=== PATIENT | male | born 1955 | race African-American/Black ===

== ENCOUNTER 2021-05-20 17:33 | Inpatient (IN) | payer OTHER ==
[~2021-05-20] VITALS: Ht 172.7 cm; Wt 92.5 kg
[2021-05-20] MEDS ORDERED: MORPHINE SULFATE INJ 4 MG/ML DISP.SYRIN ONE (18:20)
[2021-05-20] MEDS ORDERED: ONDANSETRON HCL/PF 4 MG/2 ML VIAL ONE (18:20)
[2021-05-20 18:25] LABS: BILIRUBIN,URINE Negative (NEGATIVE); COLOR,URINE YELLOW (YELLOW); LEUKOCYTE ESTERASE ,URINE Negative (NEGATIVE); NITRITE, URINE Negative (NEGATIVE); PROTEIN,URINE 30 mg/dl (NEGATIVE); UGLUCOSE Negative (NEGATIVE); UROBILINOGEN,URINE 0.2 EU/dL (0.2)
[2021-05-20 18:27] LABS: BACTERIA,URINE Rare /HPF (None Seen); RBC,URINE NONE SEEN /HPF (0-2); SQUAMOUS EPITHELIAL CELL,UR Few /HPF (None Seen); WBC,URINE NONE SEEN /HPF (0-3)
[2021-05-20] MEDS ORDERED: IV NS 0.9% 1,000 ML BAG IV ONE (18:30)
[2021-05-20] MEDS ORDERED: MORPHINE SULFATE INJ 2 MG/ML DISP.SYRIN IV ONE (18:30)
[2021-05-20] MEDS ORDERED: ONDANSETRON HCL/PF 4 MG/2 ML VIAL IVP ONE (18:30)
--- NOTE | 2021-05-20 18:30 | NUR ---
Patient came in to the er c/o LLQ pain x 2 days 06/12 ps. On room air, breathing evenly and unlabored. Conencted to the monitor and pulse ox. kept comfortable, will continue to monitor accordingly.
--- NOTE | 2021-05-20 18:31 | NUR ---
IV started and blood drawned and sent to lab.
--- NOTE | 2021-05-20 18:31 | NUR ---
urine collected and sent to lab.
[2021-05-20 18:33] LABS: BASOPHILS # (AUTO) 0.1 K/uL (0.0-0.2); BASOPHILS % (AUTO) 0.6 % (0.0-2.0); EOSINOPHILS % (AUTO) 4.4 % (0.0-6.0); HEMATOCRIT 43 % (39-51); HEMOGLOBIN 14.3 g/dL (13.5-17.5); LYMPHOCYTES # (AUTO) 1.8 K/uL (0.8-4.8); LYMPHOCYTES % (AUTO) 21.2 % (20.0-44.0); MEAN CORPUSCULAR HGB CONC 33 g/dl (31.0-36.0); MEAN CORPUSCULAR VOLUME 87 fL (80-96); MONOCYTES # (AUTO) 0.8 K/uL (0.1-1.30); NEUTROPHILS # (AUTO) 5.6 K/uL (1.8-8.9); NEUTROPHILS % (AUTO) 64.8 % (43.0-81.0); PLATELET COUNT (AUTO) 221 K/uL (150-450); RED BLOOD CELL COUNT(AUTO) 4.97 MIL/uL (4.5-6.0); WHITE BLOOD COUNT (AUTO) 8.6 K/uL (4.3-11.0)
[2021-05-20 18:55] LABS: ALBUMIN 3.6 g/dL (3.4-5.0); BILIRUBIN,DIRECT 0.2 mg/dL (0.0-0.2); BILIRUBIN,TOTAL 0.9 mg/dL (0.2-1.0); CALCIUM, SERUM 8.9 mg/dL (8.5-10.1); CREATININE 1.3 mg/dL (0.6-1.3); POTASSIUM 3.8 mmol/L (3.5-5.1); TOTAL PROTEIN, SERUM 8.5 g/dL (6.4-8.2)
[2021-05-20] MEDS ORDERED: IOHEXOL-300 100 ML VIAL IV ONE (19:11)
--- NOTE | 2021-05-20 19:18 | NUR ---
report given to lashonda hung for kimber.
--- NOTE | 2021-05-20 19:26 | NUR ---
PT RETURNED FROM CT
--- NOTE | 2021-05-20 20:37 | NUR ---
COVID SWAB DONE AND SENT TO LAB
[2021-05-20] MEDS ORDERED: ACETAMINOPHEN 325 MG TABLET PO PRN (21:00)
[2021-05-20] MEDS ORDERED: MORPHINE SULFATE INJ 2 MG/ML DISP.SYRIN IV PRN (21:00)
[2021-05-20] MEDS ORDERED: ONDANSETRON HCL/PF 4 MG/2 ML VIAL IVP PRN (21:00)
[2021-05-20] MEDS ORDERED: ENOXAPARIN SODIUM 80 MG/0.8 ML DISP.SYRIN SQ ONE (21:00)
[2021-05-20] MEDS ORDERED: hydrALAZINE HCL IV 20 MG VIAL IV PRN (21:00)
[2021-05-20] MEDS ORDERED: IV NS 0.9% 1,000 ML IV PRN (21:00)
[2021-05-20] MEDS ORDERED: ENOXAPARIN SODIUM 100 MG/ML DISP.SYRIN SQ ONE (21:09)
--- NOTE | 2021-05-20 21:57 | NUR ---
MS 113-1
--- NOTE | 2021-05-20 22:09 | NUR ---
ROOM 313-1
--- NOTE | 2021-05-20 22:14 | NUR ---
REPORT GIVEN TO CHARGE NURSE
--- NOTE | 2021-05-20 22:34 | NUR ---
STACIN TRANSFERRED TO [facility], IN NO ACUTE DISTRESS.
[2021-05-20 22:45] VITALS: BP 152/82
--- NOTE | 2021-05-20 23:15 | NUR ---
Patient arrived to [facility] at 2245 in stable condition. A&Ox4. VS: BP 152/82, Temp 99.5, HR 91, O2 99%on RA, RR 19. Patient states he is in abdominal pain, distention is evident -but denies nausea or vomiting. NPO except meds at this time. Also reports pain in L groin area which came back negative for DVT -no swelling to area noted. Patient heart rate and rhythm regular, breath sounds clear, bowel sounds hypoactive, patient has colostomy -surrounding skin in good condition. Skin intact otherwise. discoloration to R lower barba which patient reports has been there for years and there has been no issues. Patient is ambulatory -steady. Oriented patient to unit, protocols, bed controls, call light and remote. Bed locked and in lowest position. Reported 8/10 abdominal pain will give prn morphine shortly. No signs of distress at this time.
[2021-05-20] MEDS: POLYETHYLENE GLYCOL 3350 17 GM POWD.PACK PO SCH (23:16)
[2021-05-20] MEDS: DOCUSATE SODIUM LIQ 100 MG/10 ML UDC PO SCH (23:17)
--- NOTE | 2021-05-21 00:22 | NUR ---
[facility]
--- NOTE | 2021-05-21 05:47 | NUR ---
No output to colostomy overnight
--- NOTE | 2021-05-21 05:48 | NUR ---
patient still denies any nausea
[2021-05-21 06:17] LABS: BASOPHILS % (AUTO) 0.3 % (0.0-2.0); EOSINOPHILS % (AUTO) 3.8 % (0.0-6.0); HEMATOCRIT 37 % (39-51); HEMOGLOBIN 12.6 g/dL (13.5-17.5); LYMPHOCYTES # (AUTO) 1.4 K/uL (0.8-4.8); LYMPHOCYTES % (AUTO) 19.7 % (20.0-44.0); MEAN CORPUSCULAR HGB CONC 34 g/dl (31.0-36.0); MEAN CORPUSCULAR VOLUME 87 fL (80-96); MONOCYTES # (AUTO) 0.9 K/uL (0.1-1.30); MONOCYTES % (AUTO) 11.8 % (2.0-12.0); NEUTROPHILS # (AUTO) 4.7 K/uL (1.8-8.9); NEUTROPHILS % (AUTO) 64.4 % (43.0-81.0); PLATELET COUNT (AUTO) 197 K/uL (150-450); WHITE BLOOD COUNT (AUTO) 7.3 K/uL (4.3-11.0)
--- NOTE | 2021-05-21 06:23 | NUR ---
MS RN CLOSING NOTES Patient has been A&Ox4. VSS. NPO except meds. No output to colostomy bag. Denies nausea. Pain relieved with PRN Morphine. Able to make needs known. currently on NS at 75cc/hr. IV patent -no signs of infiltration or extravasation.
[2021-05-21 06:55] LABS: ALBUMIN 2.9 g/dL (3.4-5.0); BILIRUBIN,TOTAL 1.3 mg/dL (0.2-1.0); CALCIUM, SERUM 7.8 mg/dL (8.5-10.1); CREATININE 1.1 mg/dL (0.6-1.3); MAGNESIUM 2.2 mg/dL (1.8-2.4); PHOSPHORUS 3.7 mg/dL (2.5-4.9); POTASSIUM 3.9 mmol/L (3.5-5.1); TOTAL PROTEIN, SERUM 7.3 g/dL (6.4-8.2)
[2021-05-21] MEDS ORDERED: METO-357 PO (07:18)
--- NOTE | 2021-05-21 07:25 | NUR ---
RN OPENING NOTE- PT ALERT ORIENTED TO PERSON PLACE TIME PURPOSE. NEEDS ATTENDED. DENIES PAIN AT THIS TIME. VS STABLE. USING URINAL. COLOSTOMY W NO OUTPUT. PT NPO X RX, IV RAC 18G W NS AT 75/HR. SIDE RAILS UP, BED LOCKED, CALL LIGHT IN REACH.
[2021-05-21 08:00] VITALS: BP 126/76
[2021-05-21] MEDS: DOCUSATE SODIUM LIQ 100 MG/10 ML UDC PO SCH (09:00)
[2021-05-21] MEDS ORDERED: ENOXAPARIN SODIUM 100 MG/ML DISP.SYRIN SQ SCH (09:00)
[2021-05-21] MEDS: POLYETHYLENE GLYCOL 3350 17 GM POWD.PACK PO SCH (09:00)
[2021-05-21] MEDS ORDERED: ENOXAPARIN SODIUM 40 MG/0.4 ML DISP.SYRIN SQ SCH (09:00)
--- NOTE | 2021-05-21 11:45 | NUR ---
[employer] SPECIALIST NOTE- PT DC HOME AT THIS TIME W SPOUSE. ABD KUB CAME BACK UNREMARKABLE. NO SBO. DC INSTRUCTIONS REVIEWED W PT AND FAMILY. F/U W MD NEEDED. RETURN TO PREVIOUS ACTIVITY. NEEDS ATTENDED. VS STABLE. ID [id number] REMOVED. ESCORTED OFF UNIT BY THIS RN
== END 2021-05-21 12:00 | disposition home or self-care (01) | DRG 254 ==
LOC: ER 17:38 → TELE1 22:27 → MEDSG1 22:35 → MED 22:43
PROVIDERS: ADMIT Internal Medicine; ATTEND Internal Medicine
DX: R19.09 Other intra-abdominal and pelvic swelling, mass and lump (principal); I80.02 Phlebitis and thrombophlebitis of superficial vessels of left lower extremity; K76.0 Fatty (change of) liver, not elsewhere classified; K56.7 Ileus, unspecified; Z20.822 Contact with and (suspected) exposure to COVID-19; Z85.038 Personal history of other malignant neoplasm of large intestine; Z85.528 Personal history of other malignant neoplasm of kidney; Z93.3 Colostomy status; Z88.0 Allergy status to penicillin; I25.10 Atherosclerotic heart disease of native coronary artery without angina pectoris; Z90.5 Acquired absence of kidney; Z79.899 Other long term (current) drug therapy; R91.8 Other nonspecific abnormal finding of lung field; K40.20 Bilateral inguinal hernia, without obstruction or gangrene, not specified as recurrent; K42.9 Umbilical hernia without obstruction or gangrene; K43.5 Parastomal hernia without obstruction or gangrene
CPT/HCPCS: 36415; 74018; 80048-TC; 80053-TC; 80076-TC; 81001; 83605-TC; 83690-TC; 83735-TC; 84100-TC; 85025-TC; 87081-TC; 93971-TC; C9803; G0378; J1650; J2270; J2405; J7030; Q9967